=== PATIENT | female | born 1990 | race Hispanic/Latino ===

== ENCOUNTER 2019-11-16 04:01 | Day surgery (SDC) | payer OTHER ==
[2019-11-16 04:35] VITALS: BMI 24.0
[2019-11-16] MEDS ORDERED: hydrALAZINE 20 MG/ML VIAL SLOW IVP PRN (04:41)
--- NOTE | 2019-11-16 04:44 | PDOC.LDHP ---
Labor and Delivery H&P Chief complaint: other (low pelvic pressure (no dysuria)) HPI: Patient of Dr Wilburn 29 weeks 3 days 29 yo G1 at 29 weeks 3 days with lower pelvic pressure. No VB, no LOF, no regular CTX, good FM. No fevers. Review of Systems: no sxs. All list of systems reviewed and as per HPI Current gestational age (weeks): 29 (3 days) Due date: 01/29/20 Dating criteria: last menstrual period Grav: 1 Current complications: none Abnormal US findings: No Current medications: pre- vitamins Previous surgical history: none Allergies/Adverse Reactions: Allergies Allergy/AdvReac Type Severity Reaction Status Date / Time No Known Allergies Allergy Verified 11/16/19 04:29 Social history: none - Physical Exam Vital signs reviewed and normal: yes (110/66 97.7 66 100%) General: NAD Lungs: nonlabored breathing FHT: category 1 [place] contractions every: none - Assessment Lower pelvic pressure at 29 weeks, no real sxs. No CTX - Plan Plan: observation in L&D (I have ordred a TVUS and CC UA.)
--- NOTE | 2019-11-16 05:25 | PDOC.BPN ---
- Brief Progress Note CX 3cm by diana
[2019-11-16 05:42] LABS: Bacteria/HPF 3+ HPF (None Seen); Bilirubin Negative (Negative); Blood, Urine Negative (Negative); Clarity Turbid (Clear); Glucose, Urine (Dipstick) Normal (Negative); Ketone, Urine Negative (Negative); Leukocyte 250 Leu/uL (Negative); Nitrite Negative (Negative); Protein, Urine (Dipstick) Negative (Neg-Trace); RBC/HPF 0-3 HPF (0-3); Specific Gravity, Urine 1.005 (1.002-1.036); Urobilinogen Normal mg/dL (Less than 2)
[2019-11-16 05:44] LABS: Urine Culture Reflex No No
--- NOTE | 2019-11-16 05:49 | PDOC.BPN ---
- Brief Progress Note UTI on UA...will order macrobid to her pharmacy.
--- NOTE | 2019-11-16 07:54 | ULT ---
ULTRASOUND OBSTETRICAL LIMITED: DATE: 11/16/2019 HISTORY: 29-year-old female in early third trimester of , reportedly 29 Weeks 3 days. Evaluate cervical length. FINDINGS: number: fabian lie: Cephalic Maternal cervix: 3 cm. Closed. Placenta: Posterior. Probably no placenta previa. heart rate: 150 bpm IMPRESSION: 1) Live 3rd trimester intrauterine gestation. 2) Vertex lie. 3) 3 cm closed cervix
== END 2019-11-16 06:01 | disposition home or self-care (01) ==
LOC: L&D/OP 04:01
PROVIDERS: ATTEND Obstetrics & Gynecology
DX: O99.89 Other specified diseases and conditions complicating pregnancy, childbirth and the puerperium (principal); R10.2 Pelvic and perineal pain; Z3A.29 29 weeks gestation of pregnancy
CPT/HCPCS: 76815; 81001; 99283

== ENCOUNTER 2020-01-20 15:18 | Inpatient (IN) | payer OTHER ==
[2020-01-20 16:01] VITALS: BMI 27.1
[2020-01-20 16:33] LABS: Amnisure Test No Membranes Rupture (No Rupture)
[2020-01-20 16:34] LABS: Amnisure Internal Control QC ACCEPTABLE (ACCEPTABLE)
[2020-01-20] MEDS ORDERED: Lidocaine 1% (PF) 30 ML VIAL ONE (16:38)
[2020-01-20] MEDS ORDERED: NS / Oxytocin 40 units/1000ml 1,000 ML ONE (16:38)
[2020-01-20] MEDS ORDERED: hydrALAZINE 20 MG/ML VIAL SLOW IVP PRN ×2 (16:41→21:11)
[2020-01-20] MEDS ORDERED: Ondansetron PF 4 MG/2 ML Vial IVP PRN ×2 (16:41→21:11)
[2020-01-20] MEDS ORDERED: HYDROcodone/Acetaminophen 5/325 mg Tablet PO PRN ×4 (16:41→21:11)
[2020-01-20] MEDS ORDERED: Acetaminophen 500 MG TAB PO PRN (16:41)
[2020-01-20] MEDS ORDERED: Promethazine HCl 25 MG/ML VIAL IM PRN (16:41)
[2020-01-20] MEDS ORDERED: Lidocaine 1% (PF) 30 ML VIAL SC PRN (16:41)
[2020-01-20] MEDS ORDERED: Ibuprofen 800 MG TAB PO PRN (16:41)
[2020-01-20] MEDS ORDERED: Methylergonovine 0.2 MG/ML VIAL IM PRN (16:41)
[2020-01-20] MEDS ORDERED: Butorphanol Tartrate 1 MG/ML VIAL SLOW IVP PRN (16:41)
[2020-01-20] MEDS ORDERED: NS / Oxytocin 40 units/1000ml 1,000 ML IV PRN (16:41)
[2020-01-20] MEDS ORDERED: Lactated Ringer's 1,000 ML IV SCH (16:45)
[2020-01-20 17:15] LABS: Hemoglobin 14.4 g/dL (12.0-16.0); Mean Corpuscular HGB CONC 33.7 g/dL (32.0-36.0); Mean Corpuscular Hemoglobin 30.8 pg (27.0-31.0); Mean Corpuscular Volume 91.5 fL (78.0-98.0); Mean Platelet Volume 13.5 fL (7.4-10.4); Platelet Count 140 thou/uL (130-400); RBC Distribution Width 14.8 % (11.5-14.5); Red Blood Cell (RBC) Count 4.66 mill/uL (4.20-5.40); White Blood Cell (WBC) Count 11.4 thou/uL (4.8-10.8)
[2020-01-20 17:26] LABS: Syphilis Antibody Nonreactive (Nonreactive); Syphilis Antibody Index 0.02 S/CO (<1.00 Non-Reactive)
[2020-01-20 17:27] LABS: HBSAg Index 0.16 S/CO (0-0.99); Hep B Surf Ag Non-Reactive S/CO (NonReactive)
[2020-01-20] MEDS ORDERED: Lanolin Ointment 7 GM TUBE TOP PRN (21:11)
[2020-01-20] MEDS ORDERED: Preparation H Ointment 28 GM TUBE PR PRN (21:11)
[2020-01-20] MEDS ORDERED: Misoprostol 200 MCG TAB VAG PRN (21:11)
[2020-01-20] MEDS ORDERED: Benzocaine-Menthol 82.5 ML CAN TOP PRN (21:11)
[2020-01-20] MEDS ORDERED: Milk Of Magnesia 30 ML UDCUP PO PRN (21:11)
[2020-01-20] MEDS ORDERED: Zolpidem Tartrate 5 MG TAB PO PRN (21:11)
[2020-01-20] MEDS ORDERED: Bisacodyl 10 MG SUPP PR PRN (21:11)
[2020-01-20] MEDS ORDERED: diphenhydrAMINE 25 MG CAP PO PRN (21:11)
[2020-01-20] MEDS ORDERED: NS / Oxytocin 40 units/1000ml 1,000 ML IV SCH (21:15)
[2020-01-20] MEDS: Ibuprofen 800 MG TAB PO SCH (22:05)
[2020-01-21] MEDS: Ferrous Sulfate 325 MG TAB PO SCH ×2 (08:57→16:45)
[2020-01-21] MEDS: Prenatal Vitamin 1 TAB PO SCH (08:57)
[2020-01-21] MEDS: Ibuprofen 800 MG TAB PO SCH ×3 (08:57→21:19)
[2020-01-21] MEDS: Docusate Calcium (SURFAK) 240 MG CAP PO SCH ×2 (08:57→21:19)
[2020-01-21] MEDS ORDERED: Adacel (T-DAP) 0.5 ML SYRINGE IM ONE (09:00)
[2020-01-21 13:54] LABS: SARS-CoV-2 MS2 Positive; SARS-CoV-2 N Gene Negative; SARS-CoV-2 S Gene Negative; SARS-CoV-2 by NAA Not Detected (NotDetected); SARS-CoV-2 orf1ab Negative
[2020-01-21 21:35] VITALS: TEMP 98.1
[2020-01-22] MEDS: Ibuprofen 800 MG TAB PO SCH ×2 (04:04→12:45)
[2020-01-22] MEDS: Ferrous Sulfate 325 MG TAB PO SCH (08:16)
[2020-01-22 09:00] VITALS: BP 115/74
[2020-01-22] MEDS: Docusate Calcium (SURFAK) 240 MG CAP PO SCH (09:15)
[2020-01-22] MEDS: Prenatal Vitamin 1 TAB PO SCH (09:15)
== END 2020-01-22 15:45 | disposition home or self-care (01) | DRG 807 ==
LOC: L&D/OP 15:18 → L&D 16:41 → 3SW 01-21 00:01
PROVIDERS: ADMIT Obstetrics & Gynecology; ATTEND Obstetrics & Gynecology
PROC: 10E0XZZ Delivery of Products of Conception, External Approach (ICD-10-PCS; principal; 2020-01-21)
PROC: 10907ZC Drainage of Amniotic Fluid, Therapeutic from Products of Conception, Via Natural or Artificial Opening (ICD-10-PCS; 2020-01-21)
DX: O77.0 Labor and delivery complicated by meconium in amniotic fluid (principal); Z37.0 Single live birth; Z3A.38 38 weeks gestation of pregnancy; Z20.828 Contact with and (suspected) exposure to other viral communicable diseases
CPT/HCPCS: 36415; 84112; 85027; 86780; 86850; 86900; 86901; 87340; 87635; 99285; J2001; U0003

== ENCOUNTER 2025-03-02 18:31 | Emergency (ER) | payer BC | END 2025-03-02 21:34 | disposition home or self-care (01) | LOC: ERS 18:31 | DX: S93.401A Sprain of unspecified ligament of right ankle, initial encounter (principal); E28.2 Polycystic ovarian syndrome; X50.1XXA Overexertion from prolonged static or awkward postures, initial encounter | CPT/HCPCS: 99283 ==